=== PATIENT | male | born 1975 | race Caucasian/White ===

== ENCOUNTER → 2025-02-11 10:06 | Outpatient (REF) | payer OTHER, SELFPAY | LOC: RAD 10:06 | PROVIDERS: ATTENDING PHYSICIAN Internal Medicine Critical Care Medicine; FAMILY PHYSICIAN Family Medicine | DX: R59.0 Localized enlarged lymph nodes (principal) | CPT/HCPCS: 71250 ==

== ENCOUNTER 2025-02-20 06:03 | Day surgery (SDC) | payer OTHER, SELFPAY ==
[2025-02-20] VITALS (13 sets, daily range): BP systolic 88–132; BP diastolic 49–84; BMI 24.4
== END 2025-02-20 10:13 | disposition home or self-care (01) ==
LOC: SDS 06:03
PROVIDERS: ATTENDING PHYSICIAN Internal Medicine Critical Care Medicine
DX: R93.89 Abnormal findings on diagnostic imaging of other specified body structures (principal); R59.0 Localized enlarged lymph nodes; R09.89 Other specified symptoms and signs involving the circulatory and respiratory systems
CPT/HCPCS: 31653; 88173; 88305